=== PATIENT | female | born 1955 | race Caucasian/White ===

== ENCOUNTER → 2017-08-07 | Outpatient (CLI) | payer OTHER ==
[~2017-08-07] MED LIST: ALPHA LIPOIC ACID PO; ALPR1TAB5 PO; ASCO10004 PO; ASPI-496 PO; CHOL2000 PO; CYAN10005 PO; DULO60CA7 PO; GLUC100015 PO; LEVO1CAP PO; LEVO500C3 PO; LEVO7.5T PO; MELA3TAB2 PO; OMEG1CAP6 PO; OMEP40CA6 PO; ROSU10TA PO; UBID50TA3 PO; VILA40TA PO
== END ==
LOC: ROC 09:29
PROVIDERS: ATTEND Radiology Radiation Oncology
DX: Z02.9 Encounter for administrative examinations, unspecified (principal)